=== PATIENT | male | born 1985 | race Caucasian/White ===

== ENCOUNTER 2016-04-25 12:25 | Emergency (ER) | payer OTHER ==
[~2016-04-25] VITALS: Ht 177.8 cm; Wt 97.5 kg
[~2016-04-25 12:25] MED LIST: RIVA15T PO
[2016-04-25 14:19] VITALS: BP 123/64
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
== END 2016-04-25 15:30 ==
LOC: ERH 12:25
DX: S01.311A Laceration without foreign body of right ear, initial encounter (principal); S00.83XA Contusion of other part of head, initial encounter; S02.5XXA Fracture of tooth (traumatic), initial encounter for closed fracture; W19.XXXA Unspecified fall, initial encounter; Y93.89 Activity, other specified; Y92.9 Unspecified place or not applicable